=== PATIENT | male | born 1975 | race Hispanic/Latino ===

== ENCOUNTER 2019-04-19 07:32 | Emergency (ER) | payer SELFPAY ==
[2019-04-19] MEDS ORDERED: methylPREDNISolone Sod Succ/PF 125 MG/2 ML VIAL ONE (08:02)
== END 2019-04-19 08:22 | disposition home or self-care (01) ==
LOC: ERS 07:32
DX: L25.5 Unspecified contact dermatitis due to plants, except food (principal)
CPT/HCPCS: 96372; 99282; J2930